=== PATIENT | female | born 1965 | race Caucasian/White ===

== ENCOUNTER 2016-09-07 14:07 | Emergency (ER) | payer OTHER ==
[~2016-09-07] VITALS: Ht 175.3 cm; Wt 107.6 kg
[~2016-09-07 14:07] MED LIST: AMITRIPTYLINE H50 MG PO; AMITRIPTYLINE100 MG PO; ASPIR 8181 M1 PO; ATIVAN0.5 MG PO; BACLOFEN10 MG PO; BUSPAR15 MG PO; CITALOPRAM HBR10 MG PO; FENOGLIDE40 MG; FLEXERIL10 MG PO; FLONASE16 G1 BOTH NARES; FLUOXETINE HCL20 MG PO; HYDROCHLOROTHIA25 MG PO; LEVAQUIN750 MG PO; LEXAPRO20 MG PO; LORATADINE10 M2 PO; LORTAB 5-325 M1 EACH PO; MAXALT5 MG PO; MICROZIDE12.5 M1 PO; NAPROSYN500 MG PO; NORCO 5/3251 TABLET PO; PRAVACHOL40 MG; PRILOSEC OTC20 MG PO; PROZAC20 MG; RYZOLT100 MG; VICODIN 5-3001 EACH PO; VISTARIL25 MG PO; ZYRTEC10 M2 PO
[2016-09-07 16:35] VITALS: BP 131/89
== END 2016-09-07 16:40 | disposition home or self-care (01) ==
LOC: EME 14:07
DX: G43.909 Migraine, unspecified, not intractable, without status migrainosus (principal); I10 Essential (primary) hypertension; E78.5 Hyperlipidemia, unspecified; K21.9 Gastro-esophageal reflux disease without esophagitis; F32.9 Major depressive disorder, single episode, unspecified; Z87.891 Personal history of nicotine dependence
CPT/HCPCS: 99281; 99284; J1100; J1200; J1885; J2765; J7120

== ENCOUNTER → 2017-05-06 | Outpatient (CLI) | payer OTHER ==
[~2017-05-06] VITALS: Ht 175.3 cm; Wt 98.9 kg
[~2017-05-06] MED LIST changes: +NORVASC5 MG PO; +OMEPRAZOLE40 M1 PO
== END | disposition home or self-care (01) ==
LOC: AMB 09:41
DX: Z12.11 Encounter for screening for malignant neoplasm of colon (principal); R10.13 Epigastric pain; D12.3 Benign neoplasm of transverse colon; K64.8 Other hemorrhoids; R11.0 Nausea; R74.0 Nonspecific elevation of levels of transaminase and lactic acid dehydrogenase [LDH]; E66.09 Other obesity due to excess calories; Z68.33 Body mass index [BMI] 33.0-33.9, adult; Z79.82 Long term (current) use of aspirin
CPT/HCPCS: 88305; 93005; J2250